=== PATIENT | female | born 1960 | race Caucasian/White ===

== ENCOUNTER 2018-08-13 11:09 | Emergency (ER) | payer OTHER ==
[~2018-08-13] VITALS: Ht 160 cm; Wt 69.0 kg
[2018-08-13 11:17] VITALS: BP 123/88
[2018-08-13] MEDS ORDERED: CEPH-571 PO (11:35)
== END 2018-08-13 12:21 | disposition home or self-care (01) ==
LOC: ER 11:09
DX: N61.0 Mastitis without abscess (principal); Z79.2 Long term (current) use of antibiotics
CPT/HCPCS: 99283